=== PATIENT | male | born 1990 | race American Indian/Alaskan Native ===

== ENCOUNTER 2019-01-10 07:08 | Emergency (ER) | payer OTHER ==
[2019-01-10 07:39] VITALS: BP 138/79
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
[2019-01-10] MEDS ORDERED: IBUPROFEN 800 MG TAB PO ONE (09:15)
== END 2019-01-10 09:22 | disposition home or self-care (01) ==
LOC: ED 07:08
DX: M54.9 Dorsalgia, unspecified (principal)
CPT/HCPCS: 99282